=== PATIENT | female | born 1995 | race Caucasian/White ===

== ENCOUNTER 2024-11-05 03:15 | Inpatient (IN) | payer OTHER ==
[2024-11-05] MEDS: LACTATED RINGERS SOLUTION 1,000 ML/1,000 ML INFUS.BAG IV SCH (04:20)
[2024-11-05 04:30] LABS: ABSOLUTE IMMATURE GRANULOCYTES 0.06 x10^3/uL (0.0-0.031); BASOPHILS # 0.02 x10^3/uL (0.01-0.08); EOSINOPHIL % 0.4 % (0.7-5.8); EOSINOPHILS # 0.04 x10^3/uL (0.04-0.36); MCHC 32.8 g/dl (32.2-35.5); MEAN CELL VOLUME 83.1 fl (79.4-94.8); MEAN PLT VOLUME 11.4 fl (9.4-12.3); MONOCYTE # 0.47 x10^3/uL (0.24-0.86); MONOCYTE % 4.6 % (4.7-12.5); RDW 13.8 % (12.1-16.5)
[2024-11-05 04:40] LABS: INR 0.94 (0.83-1.09); PROTHROMBIN TIME (PATIENT) 10.2 SEC (9.7-13.0)
[2024-11-05 04:42] LABS: ACTIVATED PTT 29.7 SECONDS (25.2-36.5)
[2024-11-05 04:43] VITALS: BMI 31.6
[2024-11-05 04:48] LABS: CO2 21.0 mmol/L (21-32)
[2024-11-05 04:49] LABS: GLUCOSE,RANDOM 92.0 mg/dL (74-106)
[2024-11-05 04:52] LABS: CREATININE 0.7 mg/dL (0.55-1.3)
[2024-11-05] MEDS ORDERED: FENTANYL/BUPIVACAINE/NS/PF - PCEA - 50 ML DISP.SYRIN EP ONE (04:59)
[2024-11-05] MEDS: FENTANYL/BUPIVACAINE/NS/PF - PCEA - 50 ML DISP.SYRIN EP SCH ×2 (05:45→06:17)
[2024-11-05] MEDS ORDERED: NALOXONE HCL 0.4 MG/ML VIAL IVPUSH PRN (05:56)
[2024-11-05] MEDS: BUTORPHANOL TARTRATE 2 MG/ML VIAL IVPB ONE (06:08)
[2024-11-05] MEDS: PROMETHAZINE HCL 25 MG/1 ML VIAL IVPB ONE (06:08)
[2024-11-05] MEDS ORDERED: OXYTOCIN 20 UNITS in 0.9% NS 20 UNIT/1,000 ML INFUS.BAG IV ONE ×2 (06:59→09:43)
[2024-11-05] MEDS ORDERED: MISOPROSTOL 200 MCG TABLET ONE (08:25)
[2024-11-05 09:01] LABS: CORD BASE EXCESS -12.2 mmol/L (0-2); CORD HCO3 18.2 mmHg (20-29); CORD PCO2 58.8 mmHg (30-78); CORD pH 7.109 (7.14-7.44)
[2024-11-05 09:03] LABS: CORD BASE EXCESS -6.5 mmol/L (0-2); CORD HCO3 20.8 mmHg (20-29); CORD PCO2 47.4 mmHg (30-78); CORD pH 7.26 (7.14-7.44)
[2024-11-05] MEDS ORDERED: ACETAMINOPHEN 325 MG TABLET (FP) PO PRN (09:48)
[2024-11-05] MEDS ORDERED: BISACODYL 10 MG SUPP.RECT RC PRN (09:48)
[2024-11-05] MEDS ORDERED: BENZOCAINE 28 GM HEMORRHOIDAL OINTMENT TP PRN (09:48)
[2024-11-05] MEDS ORDERED: METHYLERGONOVINE MALEATE 0.2 MG/1 ML AMP IM PRN (09:48)
[2024-11-05] MEDS ORDERED: BENZOCAINE 20% 57 GM BOTTLE TP PRN (09:48)
[2024-11-05] MEDS ORDERED: WITCH HAZEL 50% (TUCKS) 40 PAD/JAR PAD TP PRN (09:48)
[2024-11-05 11:22] LABS: COCAINE, UR NEGATIVE (NEGATIVE); URINE BARBITURATES NEGATIVE (NEGATIVE)
[2024-11-05 11:23] LABS: METHADONE, UR NEGATIVE (NEGATIVE); OPIATES, URI NEGATIVE (NEGATIVE); PHENCYCLIDINE,URINE NEGATIVE (NEGATIVE); URINE AMPHETAMINES NEGATIVE (NEGATIVE)
[2024-11-05 11:24] LABS: URINE BENZODIAZEPINES NEGATIVE (NEGATIVE)
[2024-11-05] MEDS: PRENATAL VITAMINS W/ FOLIC ACID TABLET (FP) PO SCH (11:28)
[2024-11-05 14:38] LABS: HIV INTERPRETATION NEGATIVE (NEGATIVE)
[2024-11-05] MEDS: IBUPROFEN 600 MG TABLET (FP) PO PRN (15:23)
[2024-11-05] MEDS: OXYTOCIN 20 UNITS in 0.9% NS 20 UNIT/1,000 ML INFUS.BAG IV SCH (19:13)
[2024-11-05] MEDS: SENNOSIDES/DOCUSATE COMBO (SENNA PLUS) TABLET (UD) PO PRN (21:21)
[2024-11-06 07:02] LABS: ABSOLUTE IMMATURE GRANULOCYTES 0.06 x10^3/uL (0.0-0.031); BASOPHILS # 0.03 x10^3/uL (0.01-0.08); EOSINOPHIL % 0.5 % (0.7-5.8); EOSINOPHILS # 0.05 x10^3/uL (0.04-0.36); MCHC 31.6 g/dl (32.2-35.5); MEAN CELL VOLUME 86.1 fl (79.4-94.8); MEAN PLT VOLUME 11.2 fl (9.4-12.3); MONOCYTE # 0.58 x10^3/uL (0.24-0.86); MONOCYTE % 5.9 % (4.7-12.5); RDW 14.3 % (12.1-16.5)
[2024-11-07 09:28] VITALS: BP 119/67; PULSE 91; RESP 16; TEMP 98
== END 2024-11-07 14:59 | disposition home or self-care (01) | DRG 560 ==
LOC: JDEL 03:15 → JLDR 03:35 → J3W 11:00
PROVIDERS: ADMIT Obstetrics & Gynecology; ATTEND Obstetrics & Gynecology
PROC: 0KQM0ZZ Repair Perineum Muscle, Open Approach (ICD-10-PCS; principal; 2024-11-05)
PROC: 10E0XZZ Delivery of Products of Conception, External Approach (ICD-10-PCS; 2024-11-05)
DX: O34.211 Maternal care for low transverse scar from previous cesarean delivery (principal); O69.81X0 Labor and delivery complicated by cord around neck, without compression, not applicable or unspecified; O70.1 Second degree perineal laceration during delivery; Z3A.38 38 weeks gestation of pregnancy; Z37.0 Single live birth
CPT/HCPCS: 36415; 36600; 59025; 59409; 80048; 80307; 81003; 82803; 85025; 85610; 85730; 86780; 86850; 86900; 86901; 87081; 87086; 87389